=== PATIENT | male | born 2000 | race Caucasian/White ===

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

== ENCOUNTER 2022-01-23 12:22 | Emergency (ER) | payer MEDICAID, OTHER ==
[~2022-01-23] VITALS: Ht 167.6 cm; Wt 101.0 kg
[~2022-01-23 12:22] MED LIST changes: -D 202000; +VITA200032
[2022-01-23 13:34] LABS: RSV AMPLIFICATION NEGATIVE (NEGATIVE)
[2022-01-23] MEDS ORDERED: ONDA4TAB6 PO (16:11)
[2022-01-23 16:26] VITALS: BP 160/89
== END 2022-01-23 16:29 | disposition home or self-care (01) ==
LOC: M ED 12:22
DX: K52.9 Noninfective gastroenteritis and colitis, unspecified (principal); F32.A Depression, unspecified; Z79.899 Other long term (current) drug therapy

== ENCOUNTER 2022-02-08 22:35 | Emergency (ER) | payer OTHER ==
[~2022-02-08] VITALS: Ht 167.6 cm; Wt 104.5 kg
[~2022-02-08 22:35] MED LIST changes: +ONDA4TAB6 PO
[2022-02-08 22:52] VITALS: BP 145/93
== END 2022-02-09 00:50 | disposition left against medical advice (07) ==
LOC: M ED 22:35
DX: Z53.21 Procedure and treatment not carried out due to patient leaving prior to being seen by health care provider (principal)

== ENCOUNTER 2022-12-30 13:47 | Emergency (ER) | payer OTHER ==
[~2022-12-30] VITALS: Ht 170.2 cm; Wt 85.1 kg
[2022-12-30 14:34] VITALS: BP 138/81
[2022-12-30] MEDS ORDERED: CEPHALEXIN 500 MG CAP PO ONE (16:45)
[2022-12-30] MEDS ORDERED: CEPH500C PO (16:51)
== END 2022-12-30 17:00 | disposition home or self-care (01) ==
LOC: EDBD 13:47 → M ED 13:47
DX: L03.113 Cellulitis of right upper limb (principal); F32.9 Major depressive disorder, single episode, unspecified; F91.3 Oppositional defiant disorder; F90.9 Attention-deficit hyperactivity disorder, unspecified type; Z87.442 Personal history of urinary calculi; F17.200 Nicotine dependence, unspecified, uncomplicated; F12.10 Cannabis abuse, uncomplicated

== ENCOUNTER 2023-01-27 19:43 | Emergency (ER) | payer OTHER ==
[~2023-01-27] VITALS: Ht 170.2 cm; Wt 81.8 kg
[~2023-01-27 19:43] MED LIST changes: +CEPH500C PO
[2023-01-27 20:30] VITALS: BP 139/86
[2023-01-27] MEDS ORDERED: ACETAMINOPHEN 500 MG TAB PO ONE (20:35)
[2023-01-27] MEDS ORDERED: NS 1,000 ML IV ONE (20:50)
== END 2023-01-27 21:44 | disposition home or self-care (01) ==
LOC: M ED 19:43 → EDBD 19:43 → M ED 21:44
DX: S00.81XA Abrasion of other part of head, initial encounter (principal); S80.211A Abrasion, right knee, initial encounter; S60.511A Abrasion of right hand, initial encounter; S00.11XA Contusion of right eyelid and periocular area, initial encounter; F10.129 Alcohol abuse with intoxication, unspecified; W19.XXXA Unspecified fall, initial encounter; Y92.410 Unspecified street and highway as the place of occurrence of the external cause; Y93.55 Activity, bike riding; Z53.9 Procedure and treatment not carried out, unspecified reason; F90.9 Attention-deficit hyperactivity disorder, unspecified type; F17.200 Nicotine dependence, unspecified, uncomplicated; F12.10 Cannabis abuse, uncomplicated

== ENCOUNTER 2023-05-22 13:06 | Emergency (ER) | payer OTHER ==
[~2023-05-22] VITALS: Ht 167.6 cm; Wt 74.8 kg
[2023-05-22 13:45] VITALS: BP 134/91; TEMP 99.8; O2SAT 98
[2023-05-23] MEDS ORDERED: IBUP-1022 PO (13:41)
[2023-05-23] MEDS ORDERED: AMOX500C PO (13:41)
== END 2023-05-22 15:11 | disposition left against medical advice (07) ==
LOC: M ED 13:06
DX: Z53.21 Procedure and treatment not carried out due to patient leaving prior to being seen by health care provider (principal)

== ENCOUNTER 2023-05-23 07:04 | Emergency (ER) | payer OTHER ==
[~2023-05-23] VITALS: Ht 167.6 cm; Wt 74.0 kg
[2023-05-23 12:36] VITALS: BP 127/65; TEMP 98.7; O2SAT 100
[2023-05-23] MEDS ORDERED: AMOXICILLIN 500 MG CAP PO ONE (13:40)
[2023-05-23] MEDS ORDERED: KETOROLAC 60MG 2ML VIAL IM ONE (13:40)
[2023-05-23] MEDS ORDERED: IBUP-1022 PO (13:41)
[2023-05-23] MEDS ORDERED: AMOX500C PO (13:41)
== END 2023-05-23 13:49 | disposition home or self-care (01) ==
LOC: M ED 07:04
DX: J02.0 Streptococcal pharyngitis (principal)
CPT/HCPCS: 96372; 99284; J1885

== ENCOUNTER 2023-10-17 03:11 | Emergency (ER) | payer OTHER ==
[~2023-10-17] VITALS: Ht 167.6 cm; Wt 76.9 kg
[~2023-10-17 03:11] MED LIST changes: +AMOX500C PO; +IBUP-1022 PO; +RISP-105 PO; -RISP-8 PO
[2023-10-17 04:03] LABS: RSV AMPLIFICATION NEGATIVE (NEGATIVE)
[2023-10-17] MEDS ORDERED: ONDA4TAB6 PO (07:10)
[2023-10-17] MEDS ORDERED: ONDANSETRON 4MG ORAL DISINTEGRATING TAB PO ONE (07:10)
[2023-10-17 07:23] VITALS: BP 124/69; TEMP 96.9; O2SAT 99
== END 2023-10-17 07:33 | disposition home or self-care (01) ==
LOC: M ED 03:11
DX: B34.8 Other viral infections of unspecified site (principal); Z20.822 Contact with and (suspected) exposure to COVID-19; F17.200 Nicotine dependence, unspecified, uncomplicated; Z79.83 Long term (current) use of bisphosphonates

== ENCOUNTER 2023-10-30 17:21 | Emergency (ER) | payer OTHER ==
[~2023-10-30] VITALS: Ht 167.6 cm; Wt 72.7 kg
[2023-10-30] MEDS ORDERED: NS 1,000 ML IV SCH (17:30)
[2023-10-30] MEDS ORDERED: LORazepam 2 MG TAB PO PRN (17:30)
[2023-10-30 17:36] VITALS: TEMP 96.2
[2023-10-30 18:15] VITALS: BP 124/82; O2SAT 98
[2023-10-30 18:30] LABS: RSV AMPLIFICATION NEGATIVE (NEGATIVE)
[2023-10-30] MEDS ORDERED: THIAMINE 100 MG TAB PO SCH (21:00)
[2023-10-31] MEDS ORDERED: MULTIVITAMINS/MINERALS THERAP 1 TAB PO SCH (09:00)
[2023-10-31] MEDS ORDERED: FOLIC ACID 1MG TAB PO SCH (09:00)
== END 2023-10-30 18:48 | disposition home or self-care (01) ==
LOC: M ED 17:21
DX: F10.129 Alcohol abuse with intoxication, unspecified (principal); J06.9 Acute upper respiratory infection, unspecified; R00.1 Bradycardia, unspecified; F91.3 Oppositional defiant disorder; F90.9 Attention-deficit hyperactivity disorder, unspecified type; Z87.891 Personal history of nicotine dependence

== ENCOUNTER 2023-11-02 12:56 | Emergency (ER) | payer OTHER ==
[2023-11-02] MEDS: KETOROLAC 60MG 2ML VIAL IM ONE (13:12)
[2023-11-02] MEDS ORDERED: AUGM500T34 PO (14:06)
[2023-11-02] MEDS ORDERED: KETO10TAB PO (14:06)
[2023-11-02 14:39] VITALS: BP 129/77; O2SAT 100
[2023-11-02] MEDS: AUGMENTIN 875 MG TAB PO ONE (14:41)
== END 2023-11-02 15:00 | disposition home or self-care (01) ==
LOC: EDBD 12:56 → M ED 12:56
DX: S02.2XXA Fracture of nasal bones, initial encounter for closed fracture (principal); S00.502A Unspecified superficial injury of oral cavity, initial encounter; V18.0XXA Pedal cycle driver injured in noncollision transport accident in nontraffic accident, initial encounter; F12.10 Cannabis abuse, uncomplicated; F10.10 Alcohol abuse, uncomplicated; Y92.410 Unspecified street and highway as the place of occurrence of the external cause; Y93.89 Activity, other specified; Y99.9 Unspecified external cause status; Z79.2 Long term (current) use of antibiotics; Z79.899 Other long term (current) drug therapy
CPT/HCPCS: 70450; 70486; 99284; J1885

== ENCOUNTER 2024-04-04 15:15 | Emergency (ER) | payer OTHER ==
[~2024-04-04] VITALS: Ht 170.2 cm; Wt 72.7 kg
[~2024-04-04 15:15] MED LIST changes: +AUGM500T34 PO; +ONDA-282 PO; -ONDA4TAB6 PO
[2024-04-04 15:42] VITALS: BP 128/76; TEMP 97.4; O2SAT 100
[2024-04-04 16:45] LABS: BASO % 0.4 % (0.0-1.0); EOS # 0.2 10^3/uL (0.0-0.5); HEMATOCRIT 40.3 % (42.0-52.0); HEMOGLOBIN 13.8 g/dl (13.5-17.5); LYMPH # 2.1 10^3/uL (1.5-5.0); LYMPH % 31.7 % (24.0-44.0); MEAN CORPUSCULAR HEMOGLOBIN 31.2 pg (27.0-33.0); MEAN CORPUSCULAR HGB CONC 34.2 g/dl (32.0-36.5); MEAN CORPUSCULAR VOLUME 91.2 fl (80.0-96.0); MONO # 0.5 10^3/uL (0.0-0.8); NEUTROPHILS # 3.8 10^3/uL (1.5-8.5); NEUTROPHILS % 56.8 % (36.0-66.0); PLATELET COUNT, AUTOMATED 238 10^3/uL (150-450); RED BLOOD COUNT 4.42 10^6/uL (4.30-6.10); WHITE BLOOD COUNT 6.8 10^3/uL (4.0-10.0)
[2024-04-04 17:16] LABS: CK-MB VALUE MASS 1.7 NG/ML (<3.6)
[2024-04-04 17:18] LABS: ALKALINE PHOSPHATASE 84 U/L (46-116); ALT/SGPT 32 U/L (7.0-40); AST/SGOT 28 U/L (<34); BILIRUBIN,TOTAL 0.9 MG/DL (0.3-1.2); BLOOD UREA NITROGEN 14 MG/DL (9-23); CALCIUM LEVEL 8.8 MG/DL (8.5-10.1); CARBON DIOXIDE LEVEL 26 MMOL/L (20-31); CHLORIDE LEVEL 108 MMOL/L (98-107); CPK CREATINE PHOSPHOKINASE 324 U/L (46-171); CREATININE FOR GFR 0.71 MG/DL (0.70-1.30); GLOMERULAR FILTRATION RATE > 60.0 (>60); GLUCOSE, FASTING 104 MG/DL (60-100); MB/CK RELATIVE INDEX 0.52 (< OR =4); POTASSIUM SERUM 4.6 MMOL/L (3.5-5.1); SODIUM LEVEL 140 MMOL/L (136-145); TOTAL PROTEIN 6.4 G/DL (5.7-8.2)
== END 2024-04-04 17:12 | disposition left against medical advice (07) ==
LOC: EDBD 15:15 → M ED 15:15
DX: Z53.21 Procedure and treatment not carried out due to patient leaving prior to being seen by health care provider (principal)

== ENCOUNTER 2024-05-06 16:11 | Emergency (ER) | payer OTHER ==
[~2024-05-06] VITALS: Ht 167.6 cm; Wt 83.3 kg
[2024-05-06] MEDS: ACETAMINOPHEN TAB 650MG DOSE (2X325MG) PO ONE (20:10)
[2024-05-06 20:15] VITALS: BP 137/89; TEMP 97.4; O2SAT 98
== END 2024-05-06 20:16 | disposition home or self-care (01) ==
LOC: EDBD 16:11 → M ED 16:11
DX: S49.91XA Unspecified injury of right shoulder and upper arm, initial encounter (principal); Y04.8XXA Assault by other bodily force, initial encounter; Y92.410 Unspecified street and highway as the place of occurrence of the external cause; Y93.9 Activity, unspecified; Y99.9 Unspecified external cause status

== ENCOUNTER 2024-07-02 11:23 | Emergency (ER) | payer OTHER ==
[~2024-07-02] VITALS: Ht 170.2 cm; Wt 75.0 kg
[2024-07-02] MEDS ORDERED: CETI5TA PO (14:42)
[2024-07-02 15:01] VITALS: BP 144/89; TEMP 96.7; O2SAT 97
== END 2024-07-02 15:03 | disposition home or self-care (01) ==
LOC: EDBD 11:23 → M ED 11:23
DX: J06.9 Acute upper respiratory infection, unspecified (principal); J04.0 Acute laryngitis; Z87.442 Personal history of urinary calculi

== ENCOUNTER 2024-11-16 23:55 | Emergency (ER) | payer OTHER ==
[~2024-11-16] VITALS: Ht 167.6 cm; Wt 90.8 kg
[~2024-11-16 23:55] MED LIST changes: +CETI5TA PO
[2024-11-17 00:02] VITALS: TEMP 97.8
[2024-11-17 02:27] LABS: ALKALINE PHOSPHATASE 78 U/L (40-129); ALT/SGPT 29 U/L (7.0-40); AST/SGOT 45 U/L (<34); BILIRUBIN,DIRECT < 0.1 MG/DL (<0.4); BILIRUBIN,TOTAL 0.4 MG/DL (0.3-1.2); BLOOD UREA NITROGEN 10 MG/DL (9-23); CALCIUM LEVEL 8.7 MG/DL (8.5-10.1); CARBON DIOXIDE LEVEL 25 MMOL/L (20-31); CHLORIDE LEVEL 105 MMOL/L (98-107); CK-MB VALUE MASS < 1.0 NG/ML (<3.6); CPK CREATINE PHOSPHOKINASE 303 U/L (46-171); CREATININE FOR GFR 0.75 MG/DL (0.70-1.30); GLOMERULAR FILTRATION RATE > 60.0 (>60); GLUCOSE, FASTING 105 MG/DL (60-100); LIPASE 36 U/L (12-53); MB/CK RELATIVE INDEX 0.33 (< OR =4); POTASSIUM SERUM 4.9 MMOL/L (3.5-5.1); SODIUM LEVEL 138 MMOL/L (136-145); TOTAL PROTEIN 6.9 G/DL (5.7-8.2)
[2024-11-17 02:46] VITALS: BP 174/103; O2SAT 96
== END 2024-11-17 03:01 | disposition left against medical advice (07) ==
LOC: M ED 23:55
DX: Z53.21 Procedure and treatment not carried out due to patient leaving prior to being seen by health care provider (principal)

== ENCOUNTER 2024-11-19 07:36 | Emergency (ER) | payer OTHER ==
[~2024-11-19] VITALS: Ht 167.6 cm; Wt 88.4 kg
[2024-11-19 08:02] VITALS: TEMP 96.9
[2024-11-19] MEDS: ALBUTEROL SULFATE 2.5MG/0.5ML INH NEB SOLN NEB ONE (10:19)
[2024-11-19 10:21] VITALS: O2SAT 99
[2024-11-19 11:23] LABS: BASO % 0.4 % (0.0-1.0); EOS # 0.2 10^3/uL (0.0-0.5); EOS % 2.5 % (0.0-3.0); HEMATOCRIT 40.3 % (42.0-52.0); HEMOGLOBIN 14.2 g/dl (13.5-17.5); LYMPH # 2.4 10^3/uL (1.5-5.0); LYMPH % 28.4 % (24.0-44.0); MEAN CORPUSCULAR HEMOGLOBIN 30.5 pg (27.0-33.0); MEAN CORPUSCULAR HGB CONC 35.2 g/dl (32.0-36.5); MEAN CORPUSCULAR VOLUME 86.5 fl (80.0-96.0); MONO # 0.7 10^3/uL (0.0-0.8); MONO % 8.7 % (2.0-8.0); NEUTROPHILS % 59.8 % (36.0-66.0); PLATELET COUNT, AUTOMATED 266 10^3/uL (150-450); RED BLOOD COUNT 4.66 10^6/uL (4.30-6.10); WHITE BLOOD COUNT 8.4 10^3/uL (4.0-10.0)
[2024-11-19 11:54] VITALS: BP 180/112
[2024-11-19 12:06] LABS: BLOOD UREA NITROGEN 12 MG/DL (9-23); CALCIUM LEVEL 9.4 MG/DL (8.5-10.1); CARBON DIOXIDE LEVEL 26 MMOL/L (20-31); CHLORIDE LEVEL 102 MMOL/L (98-107); CREATININE FOR GFR 0.75 MG/DL (0.70-1.30); GLOMERULAR FILTRATION RATE > 60.0 (>60); GLUCOSE, FASTING 92 MG/DL (60-100); MAGNESIUM LEVEL 1.9 MG/DL (1.8-2.4); POTASSIUM SERUM 3.7 MMOL/L (3.5-5.1); SODIUM LEVEL 142 MMOL/L (136-145)
[2024-11-19] MEDS ORDERED: VENTAER INH (13:14)
== END 2024-11-19 13:20 | disposition home or self-care (01) ==
LOC: EDUNIT# 07:36 → M ED 07:36 → EDBD 07:36 → M ED 13:20
DX: J98.01 Acute bronchospasm (principal); R00.1 Bradycardia, unspecified; R03.0 Elevated blood-pressure reading, without diagnosis of hypertension; F17.200 Nicotine dependence, unspecified, uncomplicated

== ENCOUNTER 2024-11-20 00:34 | Emergency (ER) | payer OTHER ==
[~2024-11-20] VITALS: Ht 167.6 cm; Wt 72.7 kg
[~2024-11-20 00:34] MED LIST changes: +VENTAER INH
[2024-11-20 00:39] VITALS: TEMP 98.2; O2SAT 99
[2024-11-20 00:46] VITALS: BP 176/98
== END 2024-11-20 02:03 | disposition left against medical advice (07) ==
LOC: M ED 00:34
DX: Z53.21 Procedure and treatment not carried out due to patient leaving prior to being seen by health care provider (principal)

== ENCOUNTER 2025-04-22 15:22 | Emergency (ER) | payer OTHER ==
[~2025-04-22] VITALS: Ht 167.6 cm; Wt 78.8 kg
[~2025-04-22 15:22] MED LIST changes: +DIVA-41; -DIVA500T94; -FLOM0.4C39 PO; +TAMS-18 PO
[2025-04-22] MEDS ORDERED: VENTAER INH (17:04)
[2025-04-22] MEDS ORDERED: HOME MED LIST COMPLETE! XX SCH (17:05)
[2025-04-22] MEDS: ONDANSETRON 4MG 2ML VIAL IV PRN (17:13)
[2025-04-22] MEDS: KETOROLAC 30 MG/ML 1 ML VIAL IV ONE (17:13)
[2025-04-22] MEDS: NS (Normal Saline) 0.9% 1,000 ML IV ONE (17:13)
[2025-04-22] MEDS: TETANUS/DIPHTH/ACEL. PERTUSSIS 0.5 ML SYR IM.IMMUN ONE (17:14)
[2025-04-22 17:24] LABS: BASO # 0.1 10^3/uL (0.0-0.2); BASO % 0.3 % (0.0-1.0); EOS # 0.3 10^3/uL (0.0-0.5); EOS % 1.4 % (0.0-3.0); LYMPH # 0.9 10^3/uL (1.5-5.0); LYMPH % 3.8 % (24.0-44.0); MONO # 1.1 10^3/uL (0.0-0.8); MONO % 4.6 % (2.0-8.0); NEUTROPHILS # 21.4 10^3/uL (1.5-8.5); NEUTROPHILS % 89.4 % (36.0-66.0); PLATELET COUNT, AUTOMATED 252 10^3/uL (150-450)
[2025-04-22 17:30] LABS: ERYTHROCYTE SEDIMENTATION RATE 29 mm/hr (0-15)
[2025-04-22 17:54] LABS: ALT/SGPT 16 U/L (7.0-40); AST/SGOT 27 U/L (<34); CALCIUM LEVEL 9.1 MG/DL (8.5-10.1); CARBON DIOXIDE LEVEL 29 MMOL/L (20-31); CHLORIDE LEVEL 101 MMOL/L (98-107); CREATININE FOR GFR 0.77 MG/DL (0.70-1.30); GLOMERULAR FILTRATION RATE > 90.0 (>60); POTASSIUM SERUM 4.6 MMOL/L (3.5-5.1); SODIUM LEVEL 141 MMOL/L (136-145)
[2025-04-22 18:03] LABS: C REACTIVE PROTEIN QUANTITATIV 14.94 MG/DL (<1.0)
[2025-04-22] MEDS ORDERED: AMOX875T2 PO (18:20)
[2025-04-22] MEDS: AUGMENTIN 875 MG TAB PO ONE (18:22)
[2025-04-22 18:37] VITALS: BP 144/78; TEMP 98.7; O2SAT 99
== END 2025-04-22 18:57 | disposition home or self-care (01) ==
LOC: M ED 15:22
DX: H66.93 Otitis media, unspecified, bilateral (principal); J02.0 Streptococcal pharyngitis; L02.612 Cutaneous abscess of left foot; Z87.442 Personal history of urinary calculi
CPT/HCPCS: 71045; 73630; 80053; 83605; 84145; 85025; 85652; 86140; 87040; 87880; 90471; 90715; 96361; 96374; 96375; 99284; J1885; J2405

== ENCOUNTER 2025-05-23 20:44 | Emergency (ER) | payer OTHER ==
[~2025-05-23] VITALS: Ht 170.2 cm; Wt 76.2 kg
[~2025-05-23 20:44] MED LIST changes: +AMOX875T2 PO; -IBUP-1022 PO; +IBUP600T42 PO
[2025-05-23 22:26] LABS: RSV AMPLIFICATION NEGATIVE (NEGATIVE)
[2025-05-23] MEDS: IPRATROPIUM 0.5 MG/ALBUTEROL 2.5 MG INH SOL UD 3 ML NEB SCH (22:31)
[2025-05-23] MEDS: predniSONE 20 MG TAB PO ONE (22:44)
[2025-05-23] MEDS ORDERED: PRED20TA PO (23:57)
[2025-05-24 00:08] VITALS: BP 162/90; TEMP 97.4; O2SAT 96
== END 2025-05-24 00:10 | disposition home or self-care (01) ==
LOC: M ED 20:44
DX: J20.9 Acute bronchitis, unspecified (principal); F32.A Depression, unspecified; F17.200 Nicotine dependence, unspecified, uncomplicated; F17.290 Nicotine dependence, other tobacco product, uncomplicated; F12.10 Cannabis abuse, uncomplicated
CPT/HCPCS: 71046; 87637; 94640; 99284; J7512

== ENCOUNTER 2025-07-05 20:50 | Inpatient (IN) | payer OTHER ==
[~2025-07-05] VITALS: Ht 167.6 cm; Wt 71.3 kg
[~2025-07-05 20:50] MED LIST changes: +PRED20TA PO
[2025-07-05 21:35] LABS: PLATELET COUNT, AUTOMATED 305 10^3/uL (150-450)
[2025-07-05] MEDS: MUPIROCIN 2% OINT 22 GM TUBE TOP ONE (22:00)
[2025-07-05 22:05] LABS: BARBITURATES URINE NEGATIVE (NEGATIVE); COCAINE METABOLITE URINE NEGATIVE (NEGATIVE)
[2025-07-05 22:06] LABS: BENZODIAZEPINES URINE NEGATIVE (NEGATIVE); METHADONE URINE NEGATIVE (NEGATIVE); OPIATES URINE NEGATIVE (NEGATIVE); PHENCYCLIDINE URINE NEGATIVE (NEGATIVE)
[2025-07-05 22:08] LABS: ETHYL ALCOHOL (ETHANOL) 0.030 % (0.000-0.010)
[2025-07-05 22:09] LABS: AMPHETAMINES LEVEL URINE POSITIVE (NEGATIVE); CANNABINOIDS URINE POSITIVE (NEGATIVE)
[2025-07-05 22:10] LABS: ALT/SGPT 19 U/L (7.0-40); AST/SGOT 20 U/L (<34); CALCIUM LEVEL 9.7 MG/DL (8.5-10.1); CARBON DIOXIDE LEVEL 24 MMOL/L (20-31); CHLORIDE LEVEL 106 MMOL/L (98-107); CREATININE FOR GFR 0.89 MG/DL (0.70-1.30); GLOMERULAR FILTRATION RATE > 90.0 (>60); POTASSIUM SERUM 3.6 MMOL/L (3.5-5.1); SALICYLATE LEVEL < 3.0 MG/DL (<30); SODIUM LEVEL 143 MMOL/L (136-145)
[2025-07-05] MEDS ORDERED: ACETAMINOPHEN 325 MG TAB PO PRN (23:50)
[2025-07-05] MEDS ORDERED: IBUPROFEN 400 MG TAB PO PRN (23:50)
[2025-07-05] MEDS ORDERED: MOM 30 ML SUSPENSION UDC PO PRN (23:50)
[2025-07-05] MEDS ORDERED: MAALOX 30 ML SUSP *UDC PO PRN (23:50)
[2025-07-06] MEDS: traZODone 50 MG TAB PO PRN (01:06)
[2025-07-06 01:27] VITALS: BP 130/76; TEMP 98.2; O2SAT 98
[2025-07-06] MEDS ORDERED: HOME MED LIST COMPLETE! XX SCH (09:35)
[2025-07-06] MEDS: OLANZapine 5 MG TAB PO SCH ×2 (10:19→20:16)
[2025-07-06] MEDS: NICOTINE 21 MG/24 HR 1 EA TRANSDERMAL TD SCH (10:23)
[2025-07-06] MEDS: OLANZapine ORAL DISINTEGRATING TAB 5MG PO ONE ×2 (10:38→10:40)
[2025-07-06] MEDS: CEPHALEXIN 500 MG CAP PO SCH (11:58)
[2025-07-06] MEDS ORDERED: CEPH500C PO (13:00)
[2025-07-06] MEDS ORDERED: NICO21PAT TD (13:00)
[2025-07-06] MEDS ORDERED: OLAN1TAB16 PO (13:00)
[2025-07-06] MEDS ORDERED: MUPI2OI TOP (13:00)
[2025-07-06 15:47] VITALS: BP 121/67; TEMP 97.8; O2SAT 100
[2025-07-06] MEDS: FLUZONE VACCINE TRI PF(25-26) 0.5ML SYRINGE IM.IMMUN ONE (16:27)
[2025-07-06] MEDS: MUPIROCIN 2% OINT 22 GM TUBE TOP SCH (16:41)
== END 2025-07-07 12:56 | disposition home or self-care (01) | DRG 755 ==
LOC: M ED 20:50 → M ED INP 23:48 → M PSY 07-06 00:31
PROVIDERS: ADMIT Psychiatry & Neurology Neurology; ATTEND Psychiatry & Neurology Neurology
DX: F43.23 Adjustment disorder with mixed anxiety and depressed mood (principal); R45.851 Suicidal ideations; F41.9 Anxiety disorder, unspecified; F12.90 Cannabis use, unspecified, uncomplicated; F15.90 Other stimulant use, unspecified, uncomplicated; F10.10 Alcohol abuse, uncomplicated; F17.200 Nicotine dependence, unspecified, uncomplicated; N20.0 Calculus of kidney

== ENCOUNTER 2025-09-05 12:01 | Emergency (ER) | payer MEDICAID, OTHER ==
[~2025-09-05] VITALS: Ht 167.6 cm; Wt 76.0 kg
[~2025-09-05 12:01] MED LIST changes: -BACTDSTA; +MUPI2OI TOP; +NICO21PAT TD; +OLAN1TAB16 PO; +SULF-8
[2025-09-05] MEDS: ONDANSETRON 4MG ORAL DISINTEGRATING TAB PO ONE (12:37)
[2025-09-05] MEDS: KETOROLAC 30 MG/ML 1 ML VIAL IM ONE (13:09)
[2025-09-05 15:28] LABS: APPEARANCE, URINE HAZY (CLEAR); BACTERIA, URINE AUTO 1+ (NEGATIVE); BILIRUBIN, URINE AUTO NEGATIVE (NEGATIVE); BLOOD, URINE BLOOD NEGATIVE (NEGATIVE); GLUCOSE, URINE (UA) AUTO NEGATIVE (NEGATIVE); KETONE, URINE AUTO NEGATIVE (NEGATIVE); LEUKOCYTE ESTERASE, URINE AUTO NEGATIVE (NEGATIVE); MUCUS, URINE SMALL (NEGATIVE); NITRITE, URINE AUTO NEGATIVE (NEGATIVE); PROTEIN, URINE AUTO NEGATIVE (NEGATIVE); RBC, URINE AUTO 1 /HPF (0-3); SPECIFIC GRAVITY URINE AUTO 1.012 (1.002-1.035); SQUAMOUS EPITHELIAL CELL UR AU 0 /HPF (0-6); UROBILINOGEN, URINE AUTO 2.0 mg/dL (0.0-2.0); WBC, URINE AUTO 1 /HPF (0-3)
[2025-09-05 15:35] VITALS: BP 140/98; TEMP 98.3; O2SAT 100
[2025-09-05] MEDS ORDERED: CLAR10CA3 PO (15:45)
[2025-09-05] MEDS ORDERED: FLON1SPR NARES (15:45)
[2025-09-05] MEDS ORDERED: IBUP1TAB5 PO (15:45)
== END 2025-09-05 16:00 | disposition home or self-care (01) ==
LOC: M ED 12:01
DX: R55 Syncope and collapse (principal); J32.0 Chronic maxillary sinusitis; R10.A1 Flank pain, right side; Z87.442 Personal history of urinary calculi; F32.A Depression, unspecified; F41.9 Anxiety disorder, unspecified; Z79.899 Other long term (current) drug therapy
CPT/HCPCS: 70450; 71101; 72125; 81001; 87486; 87581; 87633; 87798; 96372; 99284; J1885